=== PATIENT | male | born 1990 | race Asian ===

== ENCOUNTER 2024-12-11 05:52 | Emergency (ER) | payer OTHER ==
[~2024-12-11] VITALS: Ht 175.3 cm; Wt 55.9 kg
[2024-12-11 06:02] VITALS: TEMP 98.4
[2024-12-11] MEDS: PERTUSS(ACELL),DIPH,TET/PF 0.5 ML SYRINGE [ADULT] IM. ONE (07:29)
[2024-12-11] MEDS: LIDOCAINE 1% 10 ML VIAL ID ONE (07:29)
[2024-12-11 07:33] VITALS: BP 128/66; PULSE 74; RESP 16; O2SAT 99
== END 2024-12-11 10:49 | disposition home or self-care (01) ==
LOC: EMS 05:54
DX: S51.812A Laceration without foreign body of left forearm, initial encounter (principal); W25.XXXA Contact with sharp glass, initial encounter; Y93.89 Activity, other specified; Y92.89 Other specified places as the place of occurrence of the external cause; Y99.0 Civilian activity done for income or pay
CPT/HCPCS: 99283; 73090; 90715; 90471; 12001; J3490

== ENCOUNTER 2024-12-21 11:55 | Emergency (ER) | payer MEDICAID, OTHER ==
[~2024-12-21] VITALS: Ht 175.3 cm; Wt 55.9 kg
[2024-12-21 12:01] VITALS: BP 128/75; PULSE 72; RESP 18; TEMP 97.7; O2SAT 96
== END 2024-12-21 12:32 | disposition home or self-care (01) ==
LOC: EMS 12:03
DX: S51.812D Laceration without foreign body of left forearm, subsequent encounter (principal); X58.XXXD Exposure to other specified factors, subsequent encounter
CPT/HCPCS: 99282; Z7502